=== PATIENT | male | born 1950 | race Caucasian/White ===

== ENCOUNTER 2022-05-14 12:00 | Outpatient (REF) | payer MEDICARE, SELFPAY ==
[2022-05-14 12:30] LABS: COVID-19 Test Negative (Negative)
== END 2022-05-14 12:01 | disposition home or self-care (01) ==
LOC: HO.LAB 12:00
PROVIDERS: Visit Provider Internal Medicine
DX: Z20.822 Contact with and (suspected) exposure to COVID-19 (principal)
CPT/HCPCS: 87635; C9803

== ENCOUNTER 2022-07-15 11:24 | Emergency (ER) | payer MEDICARE, SELFPAY ==
--- NOTE | ~2022-07-15 | XR_ITS ---
EXAMINATION: XR CHEST CLINICAL INFORMATION: Chest pain. COMPARISON: None TECHNIQUE: Frontal view of the chest was obtained. FINDINGS: No significant abnormality is noted involving the heart, lungs, mediastinum, bony thorax or soft tissues. XR/XR chest 1V IMPRESSION: No acute cardiopulmonary process.
[2022-07-15 11:36] VITALS: BP 136/82; PULSE 74; RESP 18; TEMP 36.9; O2SAT 98; BMI 28.1
--- NOTE | 2022-07-15 11:39 | ECG_ITS ---
Test Reason : CHEST PAIN Blood Pressure : / mmHG Vent. Rate : 083 BPM Atrial Rate : 083 BPM P-R Int : 192 ms QRS Dur : 094 ms QT Int : 362 ms P-R-T Axes : 049 -43 -03 degrees QTc Int : 425 ms Normal sinus rhythm Left axis deviation Abnormal ECG When compared with ECG of 09-MAY-2002 07:01, Left axis deviation is now Present Heart rate has decreased Referred By: Generic ED Physician Electronically Signed By:OLEGARIO ANDERSON
[2022-07-15 11:57] LABS: MANUAL DIFF FLAG NO
[2022-07-15 11:58] LABS: Basophils Percent Auto 0.3 % (0-2); Eosinophils Absolute Auto 0.1 X10*3/uL (0.0-0.4); Eosinophils Percent Auto 1.2 % (0-4); Hematocrit 37.8 % (42.0-52.0); Hemoglobin 13.4 g/dl (14.0-18.0); Imm Gran Abs Auto 0.01 X10*3/uL (0.00-0.03); Imm Gran Pct Auto 0.2 % (0.0-0.4); Lymphocytes Absolute Auto 2.4 X10*3/uL (1.2-4.9); Lymphocytes Percent Auto 36.9 % (20-40); Mean Corpuscular HGB Conc 35.4 g/dl (31.0-36.0); Mean Corpuscular Hemoglobin 33.3 pg (27.0-33.0); Mean Corpuscular Volume 93.8 fL (80.0-98.0); Mean Platelet Volume 9.6 fL (9.4-12.4); Monocytes Absolute Auto 0.7 X10*3/uL (0.1-1.2); Monocytes Percent Auto 10.5 % (2-11); Neutrophils Absolute Auto 3.3 x10*3/uL (2.0-8.3); Neutrophils Percent Auto 50.9 % (45-73); Platelet Count 187 X10*3/uL (160-400); Red Blood Count 4.03 X10*6/uL (4.60-5.80); Red Cell Distribution Width 12.2 % (11.0-16.0); White Blood Count 6.5 X10*3/uL (4.8-10.8)
--- NOTE | 2022-07-15 12:09 | ED.CHESTPAIN ---
HPI - Chest Pain General Chief Complaint: Chest Pain Stated Complaint: Referred chest pain/blood work Time Seen by Provider: 07/15/22 11:51 Source: patient Mode of arrival: ambulatory History of Present Illness HPI narrative: 72-year-old male with past medical history of AAA (monitored yearly last CT September 2021 measuring 3.5 cm), diabetes controlled with diet, HLD, sent in from PCP for intermittent left-sided chest pain radiating to left axilla/LUE x4 weeks. Reports symptoms worse on exertion. Also reports generalized fatigue. Denies SOB, cough, fever, abdominal pain, nausea/vomiting, pedal edema MD complaint: chest pain Related Data Allergies Allergy/AdvReac Type Severity Reaction Status Date / Time tetanus and diphtheria AdvReac Severe DIFFICULTY Unverified 04/09/21 15:02 toxoids BREATHING/RASH/FEVER [TETANUS AND DIPHTHERIA TOXOIDS] Review of Systems Review of Systems: Constitutional: No Fever, No Chills, No Fatigue, No Malaise ENT/Mouth: No Ear Pain, No Nasal Congestion, No Sinus Pain, No sore throat, No Rhinorrhea, No Swallowing Difficulty Eyes: No Eye Pain, No Swelling, No Redness,No Vision Changes Cardiovascular: + Chest Pain, No SOB, No Dyspnea on Exertion, No Orthopnea, No Edema, No Palpitations Respiratory: No Cough, No Sputum, No Dyspnea Gastrointestinal: No Nausea, No Vomiting, No Diarrhea, No Constipation, No Abdominal pain Genitourinary: No irregular bleeding, No Dysuria, No Urinary Frequency, No Hematuria, No Urinary Incontinence/retention,No Flank Pain Musculoskeletal: No joint pain, No Myalgias, No Joint Swelling Skin: No Skin Lesions, No rash Neuro: No Weakness, No Numbness, + Paresthesias, No Dizziness, No Headache Yes all other systems are reviewed and are negative Constitutional: Constitutional: Reports as per [facility] Past Medical History Attestation statement: The following information was validated with the patient. Social History Social History (System 04/09/21 @ 15:02 by Ladonna Pierce) Advance Directives: No Advance Directives Information Provided: Yes Physical Exam Vital Signs: Vital Signs: Last Vital Signs Temp 98.4 F 07/15/22 11:36 Pulse 74 07/15/22 11:36 Resp 18 07/15/22 11:36 BP 136/82 07/15/22 11:36 Pulse Ox 98 07/15/22 11:36 O2 Del Method 07/15/22 11:36 BMI result Body Mass Index 28.1 Const: General: cooperative, healthy appearing and no acute distress Orientation/consciousness: patient oriented x3 Limitations: no limitations HEENT: Head: Yes normal to inspection and Yes atraumatic Ears: hearing grossly normal bilaterally General nose exam: Normal external nose present Face and sinus: Yes normal facial exam Eyes: General: appearance normal, both eyes and all related structures EOM: EOMs intact bilaterally Neck: Neck: Yes normal visual inspection and Yes no meningeal signs Chest: Chest palpation & inspection: normal inspection of the chest and no tenderness Resp: Effort & Inspection: normal respiratory effort and no respiratory distress Auscultation: clear to auscultation bilaterally, no crackles, no rales, no rhonchi and no wheezes Cardio: Rate: regular rate Heart sounds: S1 normal heart sound present and S2 normal heart sound present GI: Inspection: Yes normal to inspection Palpation (GI): Soft to palpation, nontender, no guarding and not rigid : General: Yes no CVA tenderness Back/Spine/Pelvis: Back: no CVA tenderness Skin: Rashes: no rashes Wounds: no wounds Neuro: General: patient oriented x3, tone normal and no meningeal signs Gait exam (Neuro): Normal gait present Extrem: General: Yes normal to inspection, Yes no pedal edema and Yes no calf tenderness Course Course Course Narrative: -no leukocytosis. Troponin 4.3, labs otherwise reassuring XR chest 1V IMPRESSION: No acute cardiopulmonary process. Results discussed with patient including worrisome signs and symptoms and strict return precautions, and when to return to the emergency department. They verbalized understanding and feel safe for discharge at this time. MDM - Chest Pain MDM Narrative Medical decision making narrative: 72-year-old male with past medical history of AAA (monitored yearly last CT September 2021 measuring 3.5 cm), diabetes controlled with diet, HLD, sent in from PCP for intermittent left-sided chest pain radiating to left axilla/LUE x4 weeks. On exam vital signs stable, NAD, nontoxic appearing, CP not reproducible on exam, lungs CTA, no pedal edema. Concern for atypical ACS vs ?CHF vs viral illness. Lower suspicion for dissection/ruptured AAA or pneumonia. Symptoms atypical for PE Plan: EKG, labs, CXR Differential Diagnosis Differential diagnosis: Likely stable angina, unstable angina pectoris, atypical chest pain, st elevation myocardial infarction, costochondritis and chest pain Medical Records Data Attestation: I reviewed the patient's medical records. Lab Data Attestation: I reviewed the patient's lab results. Result diagrams: 07/15/22 11:52 07/15/22 11:52 Labs: Lab Results 07/15/22 07/15/22 07/15/22 Range/Units 11:52 11:52 11:52 WBC 6.5 (4.8-10.8) X10*3/uL RBC 4.03 L (4.60-5.80) X10*6/uL Hgb 13.4 L (14.0-18.0) g/dl Hct 37.8 L (42.0-52.0) % MCV 93.8 (80.0-98.0) fL MCH 33.3 H (27.0-33.0) pg MCHC 35.4 (31.0-36.0) g/dl RDW 12.2 (11.0-16.0) % Plt Count 187 (160-400) X10*3/uL MPV 9.6 (9.4-12.4) fL Immature Gran % (Auto) 0.2 (0.0-0.4) % Neut % (Auto) 50.9 (45-73) % Lymph % (Auto) 36.9 (20-40) % [place] % (Auto) 10.5 (2-11) % Eos % (Auto) 1.2 (0-4) % Baso % (Auto) 0.3 (0-2) % Lymph # (Auto) 2.4 (1.2-4.9) X10*3/uL [place] # (Auto) 0.7 (0.1-1.2) X10*3/uL Eos # (Auto) 0.1 (0.0-0.4) X10*3/uL Baso # (Auto) 0.0 (0.0-0.2) X10*3/uL Abs Immat Gran (auto) 0.01 (0.00-0.03) X10*3/uL Absolute Neuts (auto) 3.3 (2.0-8.3) x10*3/uL Absolute Nucleated RBC 0.000 (0.0-0.012) X10*3/uL Nucleated RBC % (auto) 0.0 (0.0-0.2) /100WBC Sodium 134 L (135-145) mmol/L Potassium 3.9 (3.3-5.1) mmol/L Chloride 101 (96-108) mmol/L Carbon Dioxide 25 (22-29) mmol/L Anion Gap 12 (12-20) BUN 12 (9-16) mg/dL Creatinine 0.79 (0.5-1.4) mg/dL Estim Creat Clear Calc 87.7 Estimated GFR > 60 Random Glucose 134 H (60-115) mg/dL Calcium 9.2 (8.4-10.2) mg/dL Magnesium 1.9 (1.6-2.6) mg/dL Total Bilirubin 0.5 (0.0-1.0) mg/dL Direct Bilirubin 0.2 (0.0-0.5) mg/dL AST 21 (5-37) U/L ALT 25 (0-40) U/L Alkaline Phosphatase 52 (39-117) U/L Troponin I High Sens 4.3 (<3.5-35.0) ng/L B-Natriuretic Peptide 77 (<100) pg/mL Total Protein 6.7 (6.5-8.0) g/dL Albumin 4.1 (3.5-5.0) g/dL ECG Data ECG #1: Attestation: I personally reviewed and interpreted this ECG as follows: ECG interpretation date: 07/15/22 ECG interpretation time: 11:45 Prior ECG tracings: available for review Interpretation: EKG normal sinus rhythm at a rate of 83. QTC 425. T-wave inversion in lead 3. No significant change when compared to prior. No STEMI. Discharge Plan Discharge Clinical Impression: Atypical chest pain Patient Disposition: Home, Self-Care Instructions: Chest Pain (ED) Additional Instructions: Your blood work and chest x-ray were reassuring today. He need to call your primary care doctor for close follow-up You should follow-up with cardiology, call to make an appointment If her symptoms persist/worsen, become more constant or you develop shortness of breath or swelling in your legs visit turn to the emergency department Referrals: Jordan Joshi MD [Physician] - 1 week
[2022-07-15 12:14] LABS: Anion Gap 12 (12-20); Blood Urea Nitrogen 12 mg/dL (9-16); Calcium 9.2 mg/dL (8.4-10.2); Carbon Dioxide 25 mmol/L (22-29); Chloride 101 mmol/L (96-108); Creatinine Clr Calc Pharmacy 87.7; Estimated Glomerular Filt Rate > 60; Glucose Random 134 mg/dL (60-115); Potassium 3.9 mmol/L (3.3-5.1); Sodium 134 mmol/L (135-145)
[2022-07-15 12:22] LABS: Troponin-I High Sensitivity 4.3 ng/L (<3.5-35.0)
[2022-07-15 12:33] LABS: Alanine Aminotransferase 25 U/L (0-40); Albumin Level 4.1 g/dL (3.5-5.0); Alkaline Phosphatase 52 U/L (39-117); Aspartate Amino Transferase 21 U/L (5-37); Bilirubin Direct 0.2 mg/dL (0.0-0.5); Bilirubin Total 0.5 mg/dL (0.0-1.0); Magnesium 1.9 mg/dL (1.6-2.6); Total Protein 6.7 g/dL (6.5-8.0)
[2022-07-15 12:37] LABS: B Type Natriuretic Peptide 77 pg/mL (<100)
== END 2022-07-15 13:37 | disposition home or self-care (01) ==
PROVIDERS: Physician Assistant; Emergency Provider Emergency Medicine; PCP Internal Medicine
DX: R07.89 Other chest pain (principal); R53.83 Other fatigue; E11.9 Type 2 diabetes mellitus without complications; E78.5 Hyperlipidemia, unspecified
CPT/HCPCS: 36415; 71045; 80048; 80076; 83735; 83880; 84484; 85025; 93005; 99283

== ENCOUNTER 2023-10-12 09:26 | Outpatient (REF) | payer MEDICARE, SELFPAY ==
--- NOTE | ~2023-10-12 | MR_ITS ---
EXAMINATION: MR BRAIN WITHOUT AND WITH CONTRAST; MRI ORBITS WITHOUT AND WITH CONTRAST. CLINICAL INFORMATION: 73-year-old with suspicion for possible 4th nerve palsy, with self-reported visual focus problems on the left. COMPARISON: 10/12/2018 CT brain. TECHNIQUE: Multiplanar, multisequence MRI of the brain/orbits was obtained before and after the intravenous administration of 8.5 mL Gadavist. FINDINGS: Brain Volume: [id number] generalized diffuse supratentorial parenchymal volume loss within the limitations of qualitative assessment. Structural: Redemonstrated is a probable arachnoid cyst in the anterior aspect of the right middle cranial fossa measuring 2.8 x 1.8 cm, stable in appearance from previous CT, with associated slight flattening of the temporal pole. Brain and Meninges: DWI sequence demonstrates no restricted diffusion to suggest acute or subacute cerebral ischemia. Scattered patchy and punctate foci of nonenhancing FLAIR/T2 signal hyperintensity seen in the subcortical and deeper periventricular white matter of both cerebral hemispheres with associated confluent periventricular T2 hyperintensity, likely reflecting chronic ischemic microangiopathy, more evident on current study. There is a small remote deep white matter infarct involving the deep left centrum semiovale white matter, also likely involving the inferior aspect of the body of the corpus callosum. A few small remote infarcts are seen in the dorsal aris on both sides of the midline at the level of the superior cerebellar peduncles. Gradient refocused imaging demonstrates no abnormal susceptibility-weighted signal loss to suggest hemorrhage, hemosiderin staining or abnormal mineralization. No extra-axial fluid collections, intracranial mass lesions, pathologic intracranial enhancement, space-occupying process or mass effect is identified. Ventricles and Subarachnoid Spaces: The ventricular system and subarachnoid spaces are approximately proportional to the degree of parenchymal volume loss, without hydrocephalus. Orbital Structures: The globes have a somewhat ovoid, conical shape posteriorly which is a nonspecific finding and could be secondary to chronic myopia. There is evidence of a previous lens replacement in the left globe. There is no proptosis. The globes are otherwise are normal in signal and show no definite abnormal enhancement. The orbital fat is normal in signal intensity. The extraocular muscles and optic nerves are bilaterally symmetric and demonstrate no abnormal enhancement. The lacrimal glands are atrophic bilaterally. The orbital apices appear within normal limits, with a normal appearance to the cavernous sinuses. Pituitary gland is diminutive with a normal appearance to the infundibulum. The prechiasmatic optic nerves, chiasm and optic tracts are intact with normal signal intensity and no abnormal enhancement. The supraclinoid ICAs abut the inferior surfaces of the prechiasmatic optic nerves bilaterally. No suprasellar or juxtasellar masses. Vascular: Signal voids are noted in the visualized major intracranial vessels. Osseous Structures, Sinuses/Mastoids, Extracranial Soft Tissues: Osseous structures appear grossly intact. There is minimal retained fluid in the left mastoid. There is nasal septal deviation to the left. MR/MR orbits face neck wo/w con IMPRESSION: 1. Chronic ischemic microangiopathy in the white matter of both cerebral hemispheres with small remote deep white matter infarcts in the deep white matter of the left centrum semiovale/body of the corpus callosum and in the dorsal aris. 2. No acute intracranial process. No enhancing intracranial mass lesion, pathologic enhancement, significant space-occupying process, mass effect or hydrocephalus. 3. A 2.8 cm arachnoid cyst in the anterior aspect of the right middle cranial fossa, stable in appearance from previous CT. 4. No orbital pathology identified. Specifically, no specific cause for trochlear nerve palsy is identified within the orbital pathways.
[2023-10-12] MEDS: gadobutroL 10 ML VIAL IVPUSH (11:04)
== END 2023-10-12 09:27 | disposition home or self-care (01) ==
LOC: HO.MRI 09:26
PROVIDERS: PCP Internal Medicine; Visit Provider Ophthalmology
DX: H49.13 Fourth [trochlear] nerve palsy, bilateral (principal); I63.9 Cerebral infarction, unspecified
CPT/HCPCS: 70543; 70553; A9585